=== PATIENT | male | born 1995 | race Caucasian/White ===

== ENCOUNTER 2017-12-07 14:46 | Emergency (ER) | payer OTHER ==
[2017-12-07] MEDS: ONDANSETRON 4MG/2ML VIAL (J2405) IV (16:16)
[2017-12-07] MEDS: fentaNYL 100 MCG/2 ML INJECTION (J3010) IV (16:17)
[2017-12-07] MEDS: NS 1,000 ML IV (16:22)
[2017-12-07] MEDS: PROPOFOL 200 MG/20 ML VIAL IV ×5 (16:26→16:31)
== END 2017-12-07 18:05 | disposition home or self-care (01) ==
LOC: M ED 14:46
DX: S43.015A Anterior dislocation of left humerus, initial encounter (principal); X50.0XXA Overexertion from strenuous movement or load, initial encounter; Y92.89 Other specified places as the place of occurrence of the external cause
CPT/HCPCS: J2405